=== PATIENT | male | born 1945 | race Caucasian/White ===

== ENCOUNTER 2020-04-24 17:17 | Emergency (ER) | payer OTHER ==
[2020-04-24 18:28] LABS: HEMOGLOBIN 16.1 gm/dl (14.0-17.5); RED BLOOD COUNT 4.96 M/UL (4.20-5.50); WHITE BLOOD COUNT 6.9 K/UL (4.5-11.0)
[2020-04-24 18:47] LABS: BUN/CREATININE RATIO 14 (0-10)
[2020-04-24] MEDS ORDERED: DECADRON6 MG PO (21:01)
[2020-04-24] MEDS ORDERED: DOXYCYCLINE HY100 MG PO (21:01)
== END 2020-04-24 17:55 | disposition home or self-care (01) ==
LOC: ER1 17:17
PROVIDERS: Family Medicine
DX: U07.1 COVID-19 (principal); I48.91 Unspecified atrial fibrillation; Z79.899 Other long term (current) drug therapy; Z79.01 Long term (current) use of anticoagulants
CPT/HCPCS: 71045; 80053; 82550; 82553; 83874; 83880; 84484; 85025; 85610; 93005; 99285; U0002

== ENCOUNTER 2020-05-03 17:12 | Inpatient (IN) | payer MEDICARE, OTHER ==
[~2020-05-03] VITALS: Ht 167.6 cm; Wt 69.0 kg
[~2020-05-03 17:12] MED LIST: DECADRON6 MG PO; DOXYCYCLINE HY100 MG PO
[2020-05-03 18:39] LABS: RED BLOOD COUNT 4.71 M/UL (4.20-5.50); WHITE BLOOD COUNT 16.3 K/UL (4.5-11.0)
[2020-05-03 18:58] LABS: BUN/CREATININE RATIO 25 (0-10)
[2020-05-03] MEDS ORDERED: TRAZODONE HCL100 MG PO (22:24)
[2020-05-03] MEDS ORDERED: OMEGA 3 1,0001 EACH PO (22:25)
[2020-05-03] MEDS ORDERED: TENORMIN 50 MG50 MG PO (22:26)
[2020-05-03] MEDS ORDERED: PRAVACHOL40 MG PO (22:26)
[2020-05-03] MEDS ORDERED: JANTOVEN2.5 MG PO (22:29)
[2020-05-03] MEDS ORDERED: JANTOVEN5 MG PO (22:30)
[2020-05-03] MEDS ORDERED: OMEPRAZOLE20 M1 PO (23:01)
[2020-05-03] MEDS ORDERED: DAILY VALUE1 EACH PO (23:02)
[2020-05-04 06:10] LABS: HEMOGLOBIN 14.2 gm/dl (14.0-17.5); RED BLOOD COUNT 4.46 M/UL (4.20-5.50)
[2020-05-04 06:11] LABS: WHITE BLOOD COUNT 7.8 K/UL (4.5-11.0)
[2020-05-04 06:45] LABS: BUN/CREATININE RATIO 29 (0-10)
[2020-05-05 02:30] LABS: HEMOGLOBIN 13.6 gm/dl (14.0-17.5); RED BLOOD COUNT 4.24 M/UL (4.20-5.50)
[2020-05-05 02:43] LABS: WHITE BLOOD COUNT 16.3 K/UL (4.5-11.0)
[2020-05-05 02:52] LABS: BUN/CREATININE RATIO 28 (0-10)
--- NOTE | 2020-05-05 03:06 | NUR ---
UNIT# [id number] OF CONVALESCENT COVID PLASMA STARTED. RATE STARTED AT 75CC/HR. STAYED WITH PT FOR FIRST 15 MINS. NO DISTRESS NOTED. NO S/S'S OF REACTIONS NOTED. RATE INCREASED TO 150CC/HR. WILL CONTINUE TO MONITOR PT.
[2020-05-06 03:06] LABS: HEMOGLOBIN 13.1 gm/dl (14.0-17.5); RED BLOOD COUNT 4.1 M/UL (4.20-5.50); WHITE BLOOD COUNT 14.1 K/UL (4.5-11.0)
[2020-05-06 03:23] LABS: BUN/CREATININE RATIO 27 (0-10)
[2020-05-07 04:08] LABS: HEMOGLOBIN 13.3 gm/dl (14.0-17.5); RED BLOOD COUNT 4.17 M/UL (4.20-5.50); WHITE BLOOD COUNT 12.6 K/UL (4.5-11.0)
[2020-05-07 04:27] LABS: BUN/CREATININE RATIO 31 (0-10)
[2020-05-08 04:25] LABS: BUN/CREATININE RATIO 26 (0-10)
[2020-05-12 02:54] LABS: BUN/CREATININE RATIO 27 (0-10)
[2020-05-12 03:18] LABS: HEMOGLOBIN 13.1 gm/dl (14.0-17.5); RED BLOOD COUNT 4.24 M/UL (4.20-5.50); WHITE BLOOD COUNT 9.3 K/UL (4.5-11.0)
[2020-05-13 02:39] LABS: BUN/CREATININE RATIO 24 (0-10)
== END 2020-05-15 14:32 | disposition home or self-care (01) | DRG 177 ==
LOC: ER1 17:12 → PROG CARE 21:01 → M/S 21:01 → CDU 21:01 → PROG CARE 05-04 19:50 → M/S 05-14 16:48
PROVIDERS: Emergency Medicine; Internal Medicine; ADMIT Internal Medicine
PROC: 8E0ZXY6 Isolation (ICD-10-PCS; principal; 2020-05-04)
PROC: XW13325 Transfusion of Convalescent Plasma (Nonautologous) into Peripheral Vein, Percutaneous Approach, New Technology Group 5 (ICD-10-PCS; 2020-05-04)
PROC: XW033E5 Introduction of Remdesivir Anti-infective into Peripheral Vein, Percutaneous Approach, New Technology Group 5 (ICD-10-PCS; 2020-05-04)
DX: U07.1 COVID-19 (principal); J12.82 Pneumonia due to coronavirus disease 2019; J96.01 Acute respiratory failure with hypoxia; E87.2 Acidosis; I48.0 Paroxysmal atrial fibrillation; I10 Essential (primary) hypertension; Z79.01 Long term (current) use of anticoagulants; E78.5 Hyperlipidemia, unspecified; R79.1 Abnormal coagulation profile; J20.9 Acute bronchitis, unspecified; D72.829 Elevated white blood cell count, unspecified
CPT/HCPCS: 36415; 36600; 71045; 80048; 80053; 81001; 82550; 82553; 82728; 82803; 83605; 83735; 83880; 84100; 84484; 85025; 85027; 85379; 85610; 85730; 86140; 86900; 86901; 86927; 87040; 87086; 93005; 94760; 96365; 96366; 96367; 96375; 96376; 97161; 99285; J0360; J0456; J0696; J1100; J1650; J7030; J7050; Q9967